=== PATIENT | male | born 1995 | race Caucasian/White ===

== ENCOUNTER 2017-06-25 18:28 | Emergency (ER) | payer MEDICAID ==
[2017-06-25] MEDS: DICYCLOMINE 10 MG CAP PO (22:21)
[2017-06-25] MEDS: IBUPROFEN 600 MG TAB PO (22:21)
== END 2017-06-25 22:35 | disposition home or self-care (01) ==
LOC: FTE 18:28
DX: A08.4 Viral intestinal infection, unspecified (principal)
CPT/HCPCS: 99284; Z7610

== ENCOUNTER 2018-04-11 17:15 | Emergency (ER) | payer SELFPAY, MEDICAID | END 2018-04-11 19:21 | disposition home or self-care (01) | LOC: FTE 17:15 | DX: A49.9 Bacterial infection, unspecified (principal) | CPT/HCPCS: 99283 ==

== ENCOUNTER 2018-08-06 11:22 | Emergency (ER) | payer SELFPAY ==
[2018-08-06] MEDS: IBUPROFEN 600 MG TAB PO (13:45)
[2018-08-06] MEDS: DEXAMETHASONE 4 MG TAB PO (13:49)
== END 2018-08-06 14:14 | disposition home or self-care (01) ==
LOC: FTE 11:22
DX: J02.9 Acute pharyngitis, unspecified (principal)
CPT/HCPCS: 99283